=== PATIENT | female | born 1995 | race Caucasian/White ===

== ENCOUNTER 2018-11-18 09:32 | Emergency (ER) | payer OTHER ==
[2018-11-18] MEDS ORDERED: HYDROCODONE/ACETAMINOPHEN 5-325 MG TABLET PO ONE (10:12)
[2018-11-18] MEDS ORDERED: METHOCARBAMOL 750 MG TABLET PO ONE (10:12)
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
[2018-11-18 11:39] VITALS: BP 127/77
== END 2018-11-18 11:43 | disposition home or self-care (01) ==
LOC: ER 09:32
DX: M54.2 Cervicalgia (principal); M25.512 Pain in left shoulder; M79.674 Pain in right toe(s); V87.7XXA Person injured in collision between other specified motor vehicles (traffic), initial encounter; F17.200 Nicotine dependence, unspecified, uncomplicated; I10 Essential (primary) hypertension
CPT/HCPCS: 99283; 72050; 73030; 73660; J3490